=== PATIENT | male | born 1980 | race Caucasian/White ===

== ENCOUNTER 2020-11-28 18:07 | Emergency (ER) | payer SELFPAY ==
[2020-11-28 18:12] VITALS: BP 122/79; PULSE 84; RESP 16; TEMP 36.6; O2SAT 98; BMI 26.4
--- NOTE | 2020-11-28 18:31 | XR_ITS ---
WS: [id number] Portable AP upright chest, 11/28/2020 Clinical Data: cp Comparison: Portable chest, 06/30/2019. Findings: No nodules, masses or effusions are seen. The heart is normal. The pulmonary vascularity is not increased. No pneumonia or pneumothorax is seen. XR/XR chest 1V portable [id number] Impression: Negative chest.
--- NOTE | 2020-11-28 20:31 | ECG_ITS ---
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 Measurements Intervals Festus Rate: 54 P: 16 AK: 87 QRS: 31 QRSD: 137 T: 73 QT: 426 QTc: 404 Interpretive Statements SINUS BRADYCARDIA WITH SHORT AK INTERVAL VENTRICULAR PREEXCITATION/WPW No previous ECG available for comparison Electronically Signed On 11-29-2020 20:33:22 VOLUNTEER COORDINATOR by Mirlande Poole M.D. [email or web address]
== END 2020-11-28 21:56 | disposition left against medical advice (07) ==
LOC: ER 18:17
PROVIDERS: Emergency Provider Family Medicine
DX: Z53.21 Procedure and treatment not carried out due to patient leaving prior to being seen by health care provider (principal)
CPT/HCPCS: 71045; 93005; 99281